=== PATIENT | male | born 1955 ===

== ENCOUNTER 2020-05-16 15:13 | Emergency (ER) | payer SELFPAY ==
[~2020-05-16] VITALS: Ht 177.8 cm; Wt 61.9 kg
--- NOTE | 2020-05-16 16:53 | NUR ---
EDUCATION LIAISON: PT AMBULATORY TO ROOM FROM LOBBY
--- NOTE | 2020-05-16 16:54 | NUR ---
INITIAL PT CONTACT. PT PRESENTS TO ED C/O O2/PULSE OX AT HOME 88-90% RA PER PT. PT TESTED FOR COVID + 04/27. RESPIRATIONS REGULAR AND UNLABORED. PT UPRIGHT ON GURNEY, CONTINUOUS PULSE OX IN PLACE. PT DENIES ANY NEEDS AT THIS TIME. CALL LIGHT AND PERSONAL BELONGINGS IN REACH. ISOLATION PRECAUTIONS IN PLACE.
[2020-05-16 17:26] VITALS: BP 140/87
--- NOTE | 2020-05-16 18:29 | NUR ---
Patient given discharge instructions and they have confirmed that they understand the instructions. Patient ambulatory with steady gait.
== END 2020-05-16 18:31 | disposition home or self-care (01) ==
LOC: ED 17:50
DX: U07.1 COVID-19 (principal); J06.9 Acute upper respiratory infection, unspecified; R05 Cough; R00.0 Tachycardia, unspecified; R06.02 Shortness of breath
CPT/HCPCS: 71045; 93005; 99283